=== PATIENT | female | born 1970 | race Hispanic/Latino ===

== ENCOUNTER 2022-09-07 04:53 | Emergency (ER) | payer OTHER ==
[~2022-09-07] VITALS: Ht 170.2 cm; Wt 86.2 kg
[2022-09-07] MEDS ORDERED: ONDANSETRON 4MG INJ ONE (05:12)
[2022-09-07 05:20] LABS: BASOPHILS % (AUTO) 0.2 % (0.0-5.0); EOSINOPHILS % (AUTO) 0.8 % (0.0-8.0); HEMATOCRIT 42.7 % (36-48); LYMPHOCYTES % (AUTO) 12.9 % (21.0-51.0); MEAN CORPUSCULAR HEMOGLOBIN 31.5 pg (27.0-33.0); MEAN CORPUSCULAR HGB CONC 34.9 g/dL (32.0-36.0); MEAN CORPUSCULAR VOLUME 90.3 fL (79-99); MONOCYTES % (AUTO) 5.6 % (3.0-13.0); NEUTROPHILS % (AUTO) 80.2 % (40.0-77.0); PLATELET COUNT (AUTO) 194 K/uL (130-400); RED BLOOD CELL COUNT(AUTO) 4.73 MIL/uL (4.00-5.50); RED CELL DISTRIBUTION WIDTH 13.2 % (11.0-15.5); WHITE BLOOD COUNT (AUTO) 13.7 K/uL (4.8-10.8)
[2022-09-07] MEDS ORDERED: ONDANSETRON 4MG INJ IVP ONE (05:30)
[2022-09-07] MEDS ORDERED: 0.9%NACL 1000ML 1,000 ML IV ONE (05:30)
[2022-09-07 05:31] LABS: CREATININE 0.8 mg/dL (0.5-1.5); POTASSIUM 4.3 mmol/L (3.5-5.1)
[2022-09-07 05:36] LABS: ALBUMIN 4.1 g/dL (3.5-5.0); TOTAL PROTEIN, SERUM 7.8 g/dL (6.0-8.3)
[2022-09-07] MEDS ORDERED: HYOS0.124 SL (06:02)
[2022-09-07] MEDS ORDERED: ONDA4TAB10 PO (06:02)
[2022-09-07 06:06] VITALS: BP 136/78
== END 2022-09-07 06:26 | disposition home or self-care (01) ==
LOC: EDH 04:53
DX: K52.9 Noninfective gastroenteritis and colitis, unspecified (principal); E86.9 Volume depletion, unspecified; R55 Syncope and collapse
CPT/HCPCS: 99285; 96374; 71045; 96361; 84484; 80053; 85025; 36415; 93005; J7030; J2405